=== PATIENT | female | born 1970 | race Asian ===

== ENCOUNTER 2019-09-25 06:08 | Emergency (ER) | payer BC, OTHER ==
[~2019-09-25] VITALS: Ht 165.1 cm; Wt 49.2 kg
--- NOTE | 2019-09-25 06:24 | NUR ---
Xray at bedside.
[2019-09-25] MEDS ORDERED: IV NORMAL SALINE 1000 ML BAG IV ONE (06:30)
--- NOTE | 2019-09-25 06:33 | NUR ---
Dr. Ochoa at bedside for MSE.
[2019-09-25 06:39] LABS: BASOPHILS % (AUTO) 0.2 % (0.0-2.0); EOSINOPHILS % (AUTO) 0.6 % (0.0-7.0); HEMATOCRIT 38.2 % (31.2-41.9); HEMOGLOBIN 12.8 g/dL (10.9-14.3); LYMPHOCYTES # (AUTO) 0.3 K/uL (20.0-40.0); LYMPHOCYTES % (AUTO) 3.8 % (20.5-51.5); MEAN CORPUSCULAR HEMOGLOBIN 32.6 uug (24.7-32.8); MEAN CORPUSCULAR HGB CONC 34 g/dL (32.3-35.6); MEAN CORPUSCULAR VOLUME 97.2 fL (75.5-95.3); MONOCYTES # (AUTO) 0.3 K/uL (2.0-10.0); MONOCYTES % (AUTO) 3.5 % (0.0-11.0); NEUTROPHILS # (AUTO) 8.3 K/uL (1.8-8.9); NEUTROPHILS % (AUTO) 91.9 % (38.5-71.5); PLATELET COUNT (AUTO) 211 K/uL (179-408); RED BLOOD CELL COUNT(AUTO) 3.93 MIL/uL (3.63-4.92)
--- NOTE | 2019-09-25 06:41 | NUR ---
Pt out of ER for CT.
--- NOTE | 2019-09-25 06:52 | NUR ---
Report given to Bobby Lewis RN dayshift.
[2019-09-25 06:53] LABS: CREATININE 0.7 mg/dL (0.6-1.3); POTASSIUM 3.2 mmol/L (3.5-5.1)
[2019-09-25 06:58] LABS: BILIRUBIN,DIRECT 0.2 mg/dL (0.0-0.2); BILIRUBIN,TOTAL 0.9 mg/dL (0.2-1.0); TOTAL PROTEIN, SERUM 6.5 g/dL (6.4-8.2)
--- NOTE | 2019-09-25 07:07 | NUR ---
received shift report from Gunnar Romano RN. pt back in er from radiology. no complaints at this time.
--- NOTE | 2019-09-25 07:22 | NUR ---
pt able to self-ambulate approximately 10 ft w/o assistance.
[2019-09-25 07:35] VITALS: BP 110/52
--- NOTE | 2019-09-25 07:35 | NUR ---
Patient discharged to home in stable conditon. Written and verbal after care instructions given. Patient verbalizes understanding of instructions. all belongings w/ pt. pt self-ambulated w/o difficulty. pt d/c w/ family. 20g iv access in lac removed prior to d/c - inner cannula intact.
== END 2019-09-25 08:05 | disposition home or self-care (01) ==
LOC: ER 06:12
DX: R55 Syncope and collapse (principal); E87.6 Hypokalemia
CPT/HCPCS: 36415; 70030-TC; 70450; 71045; 85025; 85730; 87400; 93005; A4663; J7030

== ENCOUNTER 2025-02-05 02:05 | Emergency (ER) | payer BC, OTHER ==
[~2025-02-05] VITALS: Ht 162.6 cm; Wt 49.9 kg
[2025-02-05 02:51] LABS: BASOPHILS % (AUTO) 0.6 % (0.0-2.0); DIFFERENTIAL COMMENT 1; EOSINOPHILS # (AUTO) 0.1 K/uL (0.0-0.7); EOSINOPHILS % (AUTO) 2.8 % (0.0-7.0); LYMPHOCYTES # (AUTO) 1.9 K/uL (0.8-4.8); LYMPHOCYTES % (AUTO) 38.1 % (20.5-51.5); MEAN CORPUSCULAR HEMOGLOBIN 32.1 uug (24.7-32.8); MEAN CORPUSCULAR HGB CONC 34 g/dL (32.3-35.6); MEAN CORPUSCULAR VOLUME 93.8 fL (75.5-95.3); MONOCYTES # (AUTO) 0.3 K/uL (0.1-1.30); MONOCYTES % (AUTO) 6.7 % (0.0-11.0); NEUTROPHILS # (AUTO) 2.5 K/uL (1.8-8.9); NEUTROPHILS % (AUTO) 51.8 % (38.5-71.5); PLATELET COUNT (AUTO) 271 K/uL (179-408); RED BLOOD CELL COUNT(AUTO) 4.37 MIL/uL (3.63-4.92); RED CELL DISTRIBUTION WIDTH 12.3 % (12.3-17.7); WHITE BLOOD COUNT (AUTO) 4.9 K/uL (3.8-11.8)
[2025-02-05 02:55] LABS: CALCIUM 9.3 mg/dL (8.5-10.1); CARBON DIOXIDE 29 mmol/L (21-32); CHLORIDE 103 mmol/L (98-107); CREATININE 0.6 mg/dL (0.6-1.3); GLUCOSE 102 mg/dL (74-106); POTASSIUM 3.8 mmol/L (3.5-5.1); SODIUM SERUM 142 mmol/L (136-145); UREA NITROGEN, BLOOD 16 mg/dL (7-18)
[2025-02-05 03:07] LABS: ALANINE AMINOTRANSFERASE 26 U/L (14-59); ALBUMIN 3.8 g/dL (3.4-5.0); ALKALINE PHOSPHATASE 87 U/L (50-136); ASPARTATE AMINOTRANSFERASE 16 U/L (15-37); BILIRUBIN,DIRECT 0.1 mg/dL (0.0-0.2); BILIRUBIN,TOTAL 0.3 mg/dL (0.2-1.0); NT-PRO BNP 40 pg/mL (0-125); TOTAL PROTEIN, SERUM 7.7 g/dL (6.4-8.2)
[2025-02-05 03:58] VITALS: BP 115/74; O2SAT 99
== END 2025-02-05 03:58 | disposition home or self-care (01) ==
LOC: ER 02:05
DX: R07.89 Other chest pain (principal); R00.2 Palpitations
CPT/HCPCS: 36415; 71045; 84484; 85025; 85730; A4606; A4663